=== PATIENT | male | born 1985 | race Caucasian/White ===

== ENCOUNTER → 2023-03-10 | Outpatient (CLI) | payer OTHER | LOC: M RAD 07:19 | PROVIDERS: ATTEND Pain Medicine Interventional Pain Medicine | DX: M25.562 Pain in left knee (principal) ==

== ENCOUNTER 2023-07-24 11:28 | Day surgery (SDC) | payer OTHER ==
[~2023-07-24] VITALS: Ht 182.9 cm; Wt 103.9 kg
[~2023-07-24 11:28] MED LIST: CELE0.09 PO; CELE50CA PO; CYMB60CA4 PO; LIDOCAINE 2% 100MG/5ML SDV (FOR ANES.) As Ordered ONE; NS 1,000 ML IV ONE; PANT40TA29 PO; TIZA4CAP6 PO; propofoL 200 MG/20 ML VIAL As Ordered ONE
[2023-07-24] MEDS ORDERED: fentaNYL 100 MCG/2 ML INJECTION As Ordered ONE (12:54)
[2023-07-24] MEDS ORDERED: propofoL 200 MG/20 ML VIAL As Ordered ONE (13:30)
[2023-07-24 13:35] VITALS: TEMP 97.1
[2023-07-24 13:52] VITALS: BP 141/65; O2SAT 99
== END 2023-07-24 13:53 | disposition home or self-care (01) ==
LOC: M OPP 11:28
PROVIDERS: ATTEND Internal Medicine Gastroenterology
DX: K21.9 Gastro-esophageal reflux disease without esophagitis (principal); Z87.891 Personal history of nicotine dependence; G47.30 Sleep apnea, unspecified; Z99.89 Dependence on other enabling machines and devices; Z79.1 Long term (current) use of non-steroidal anti-inflammatories (NSAID); Z79.891 Long term (current) use of opiate analgesic; Z79.899 Other long term (current) drug therapy; Z88.0 Allergy status to penicillin; Z88.1 Allergy status to other antibiotic agents
CPT/HCPCS: 43235; J3010